=== PATIENT | female | born 1975 | race Caucasian/White ===

== ENCOUNTER 2021-12-21 17:48 | Emergency (ER) | payer OTHER, SELFPAY ==
--- NOTE | 2021-12-21 18:02 | ED.SKABFB ---
HPI - Skin/Abscess/Foreign Bdy General Chief complaint: Wound/Laceration Stated complaint: infection in foot Time Seen by Provider: 12/21/21 18:02 Source: patient Mode of arrival: ambulatory Limitations: no limitations History of Present Illness HPI narrative: patient states that as she went to a concert and then had a long walk to catch her ride back home. She created a large blister on her right foot. Following this she went down to [place] where she was in the water but put on some water per feeding and edges on her foot. When she took off the bandage is it ripped off some of the skin around the edge of the bandage. She began noticing some redness yesterday. She is having some mild pain and warmth in her right foot. She denies any fever chills but she has notice sweats. complaint: abscess/boil and other ( blister) Onset (ago): week(s) (1) Location: R foot Severity: moderate Quality: aching, dull and constant Pain Consistency: constant Relieving factors: rest Exacerbating factors: movement Context: none Associated symptoms: denies other symptoms Treatments prior to arrival: bandages Related Data Home Medications Medication Instructions Recorded Confirmed atenolol 50 mg-chlorthalidone 25 1 tablet DAILY 12/21/21 12/21/21 mg tablet duloxetine 20 mg capsule,delayed 1 cap PO DAILY 12/21/21 12/21/21 release irbesartan 300 mg tablet 1 tablet DAILY 12/21/21 12/21/21 metformin 500 mg tablet,extended 1 tablet PO BID 12/21/21 12/21/21 release 24 hr semaglutide 1 mg/dose (4 mg/3 mL) subcut WEEKLY 12/21/21 subcutaneous pen injector (Ozempic) Allergies Allergy/AdvReac Type Severity Reaction Status Date / Time No Known Allergies Allergy Verified 12/21/21 18:12 Review of Systems Review of Systems: All systems reviewed & are unremarkable except as noted in HPI and below PMFSH Past Medical History Medical History (Updated 12/21/21 @ 18:19 by Archie Berger MD) No active medical problems Surgical History Surgical History (Updated 12/21/21 @ 18:17 by Archie Berger MD) Previous back surgery Social History Social History (Updated 12/21/21 @ 18:17 by Archie Berger MD) Smoking status: Never smoker Alcohol intake: current Alcohol use details: occasional Substance use: never Exam Const: General: healthy appearing, no acute distress and alert Nutritional Appearance: well nourished Orientation/consciousness: patient oriented x3 Limitations: no limitations HENMT: Head: normal to inspection Ears: external ears normal General nose exam: Normal external nose present Face and sinus: normal facial exam Mouth: Yes moist mucous membranes Eyes: Conjunctivae: conjunctivae normal Pupils: Equal, round and reactive pupils present EOM: EOMs intact bilaterally Neck: Neck: normal visual inspection Resp: Effort & Inspection: normal respiratory effort Auscultation: clear to auscultation bilaterally Cardio: Rate: regular rate Rhythm: regular rhythm GI: Auscultation: normal bowel sounds Back/Spine/Pelvis: Cervical Spine: cervical ROM normal Thoracic/Lumbar Spine: thoraco-lumbar ROM normal Skin: General skin exam: normal color Rashes: no rashes Wounds: wounds noted ulceration right plantar foot Other: Patient has a 2 cm circular blister on the plantar aspect of her right foot over the 1st MCP. She also has skin tear and erythema at the base of the 4th and 5th digits. Mild erythema on the dorsal aspect of her right foot with some swelling. Neuro: General: patient oriented x3, moves all extremities, no focal motor deficits and CN's II-XI intact bilaterally Speech: normal speech Extrem: General: normal to inspection and no clubbing, cyanosis or edema Psych: Mental Status: mental status grossly normal Affect: normal affect Attitude: cooperative Course Vital Signs Vital signs: Vital Signs Temperature 36.4 C L 12/21/21 18:20 Pulse Rate 90 12/21/21 18:20 Respiratory Rat
[2021-12-21 18:20] VITALS: BP 142/80; PULSE 90; RESP 16; TEMP 36.4; O2SAT 98
[2021-12-21] MEDS: CLINDAMYCIN HCL 150 MG CAP 300 MG PO (18:45)
--- NOTE | 2021-12-21 18:53 | PC.NURSE ---
Wound dressed with telfa and coban.
[2021-12-21 18:54] VITALS: BP 128/69; PULSE 84; RESP 16; O2SAT 97
== END 2021-12-21 18:57 | disposition home or self-care (01) ==
PROVIDERS: Emergency Provider Emergency Medicine; PCP Internal Medicine
DX: L03.115 Cellulitis of right lower limb (principal)
CPT/HCPCS: 99283; A9270

== ENCOUNTER 2021-12-22 15:41 | Outpatient (CLI) | payer OTHER, SELFPAY ==
--- NOTE | ~2021-12-22 | XR_ITS ---
EXAMINATION: XR foot RT min 3V DATE: 12/22/2021 15:58 INDICATION: Right foot pain TECHNIQUE: Dorsoplantar, lateral, and 2 oblique views of the right foot were obtained. COMPARISON: None. FINDINGS: Bone alignment is normal. There is no fracture. 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 Mild osteoarthritis is also noted in multiple interphalangeal joints. A dain ntar calcaneal enthesophyte is noted. There is plantar soft tissue swelling of the heel. No underlyin g osseous abnormality is identified. IMPRESSION: 1. Plantar soft tissue swelling of the heel without underlying osseous abnormality identified. Reviewed, dictated and finalized at location F. IMPRESSION: 1. Plantar soft tissue swelling of the heel without underlying osseous abnormal ity identified.
== END 2021-12-22 15:42 | disposition home or self-care (01) ==
LOC: CHSIMG 15:43
PROVIDERS: PCP Internal Medicine; Visit Provider Nurse Practitioner Family
DX: M79.671 Pain in right foot (principal)
CPT/HCPCS: 73630

== ENCOUNTER 2021-12-24 11:03 | Outpatient (CLI) | payer OTHER, SELFPAY ==
[2021-12-24] MEDS: cefTRIAXone 1 GM, LIDOCAINE HCL 1% LOCAL INJ 2.1 ML IM (11:44)
== END 2021-12-24 11:04 | disposition home or self-care (01) ==
LOC: CHSTREATRM 11:06
PROVIDERS: PCP Internal Medicine; Visit Provider Nurse Practitioner Family
DX: L03.818 Cellulitis of other sites (principal)
CPT/HCPCS: 96372; J0696

== ENCOUNTER 2024-01-31 07:51 | Outpatient (CLI) | payer BC, SELFPAY ==
[2024-01-31 08:15] LABS: Basophils Absolute Auto 0.03 K/mm3 (0.00-0.10); Basophils Percent Auto 0.4 % (0.0-1.0); Eosinophils Absolute Auto 0.04 K/mm3 (0.02-0.50); Eosinophils Percent Auto 0.6 % (1.0-6.0); Hematocrit 40.7 % (35.0-49.0); Hemoglobin 14.9 g/dL (12.0-15.0); Immature Granulocyte Absolute 0.03 K/mm3 (0.00-0.00); Immature Granulocyte Percent A 0.4 % (0.0-0.0); Lymphocytes Absolute Auto 1.96 K/mm3 (1.10-4.50); Mean Corpuscular HGB Conc 36.6 g/dL (32-36); Mean Corpuscular Hemoglobin 32.9 pg (27.0-31.0); Mean Corpuscular Volume 89.8 fL (78.0-102.0); Mean Platelet Volume 8.1 fl (9.2-11.8); Monocytes Absolute Auto 0.48 K/mm3 (0.10-0.90); Monocytes Percent Auto 6.6 % (2.0-11.0); Neutrophils Absolute Auto 4.71 K/mm3 (1.70-7.20); Platelet Count Result 248 K/mm3 (150-420); Red Blood Count 4.53 M/mm3 (4.20-5.40); Red Cell Distribution Width 11.2 % (11.6-14.4); White Blood Count 7.3 K/mm3 (4.8-10.8)
[2024-01-31 08:53] LABS: Hemoglobin A1C 7.8 % (<5.7)
[2024-01-31 09:17] LABS: Alanine Aminotransferase 25 U/L (14-59); Albumin Level 3.6 g/dL (3.4-5.0); Alkaline Phosphatase 57 U/L (46-116); Anion Gap 9 mmol/L (4-12); Aspartate Amino Transferase 18 U/L (15-37); Bilirubin,Total 0.6 mg/dL (0.00-1.00); Blood Urea Nitrogen 11 mg/dL (7-18); Calcium 8.7 mg/dL (8.5-10.1); Carbon Dioxide 28 mmol/L (21-32); Chloride 96 mmol/L (98-108); Cholesterol 212 mg/dL (0-200); Estimated Glomerular Filt Rate > 60; Glucose 193 mg/dL (70-99); HDL Direct 40 mg/dL (40-60); LDL Cholesterol Calculated 125 mg/dL (<130); Osmolality Calculated 280 mOsm/kg (285-295); Potassium 3.6 mmol/L (3.5-5.1); Sodium 133 mmol/L (136-145); Triglycerides 237 mg/dL (0-150)
== END 2024-01-31 07:52 | disposition home or self-care (01) ==
LOC: CHSLAB 07:59
PROVIDERS: PCP Internal Medicine
DX: E11.65 Type 2 diabetes mellitus with hyperglycemia (principal)
CPT/HCPCS: 36415; 80053; 80061; 83036; 84443; 85025